=== PATIENT | female | born 1980 | race Caucasian/White ===

== ENCOUNTER 2018-06-03 18:23 | Emergency (ER) | payer OTHER ==
[2018-06-03 19:31] VITALS: BMI 28.7
[2018-06-03 19:35] VITALS: BP 109/73; PULSE 71; RESP 18; TEMP 98.3; O2SAT 100
--- NOTE | 2018-06-03 20:18 | ED PDOC ---
Arrival/HPI - General Chief Complaint: Abnormal Skin Integrity Time Seen by Provider: 06/03/18 19:36 - History of Present Illness Narrative History of Present Illness (Text): 06/03/18 20:15 38 yo female, hx of lupus presents for rash x 3 days. rash is pruitic. started on arms and now diffuse across chest back legs. no new lotions creams detergents. Past Medical History - Infectious Disease Hx of Infectious Diseases: None - Endocrine/Metabolic Hx Systemic Lupus Erythematosus: Yes - Psychiatric Hx Substance Use: No - Surgical History Hx Section: Yes (x1) - Anesthesia Hx Anesthesia: Yes Hx Anesthesia Reactions: No Hx Malignant Hyperthermia: No Family/Social History Family/Social History: Unknown Family HX Smoking Status: Never Smoked Hx Alcohol Use: No Hx Substance Use: No Allergies/Home Meds Allergies/Adverse Reactions: Allergies No Known Allergies Allergy (Verified 06/03/18 19:31) Review of Systems - Review of Systems Constitutional: Normal Eyes: Normal ENT: Normal Respiratory: Normal Cardiovascular: Normal Gastrointestinal: Normal Genitourinary Female: Normal Musculoskeletal: Normal Skin: Rash Neurological: Normal Endocrine: Normal Hemo/Lymphatic: Normal Psychiatric: Normal Physical Exam Vital Signs Temp Pulse Resp BP Pulse Ox 06/03/18 19:35 98.3 F 71 18 109/73 100 Temperature: Afebrile Blood Pressure: Normal Pulse: Regular Respiratory Rate: Normal Appearance: Positive for: Well-Appearing, Non-Toxic, Comfortable Pain Distress: None Mental Status: Positive for: Alert and Oriented X 3 - Systems Exam Head: Present: Atraumatic, Normocephalic Pupils: Present: PERRL Extroacular Muscles: Present: EOMI Conjunctiva: Present: Normal Mouth: Present: Moist Mucous Membranes Neck: Present: Normal Range of Motion Respiratory/Chest: Present: Clear to Auscultation, Good Air Exchange. No: Respiratory Distress, Accessory Muscle Use Cardiovascular: Present: Regular Rate and Rhythm, Normal S1, S2. No: Murmurs Abdomen: No: Tenderness, Distention, Peritoneal Signs Back: Present: Normal Inspection Upper Extremity: Present: Normal Inspection. No: Cyanosis, Edema Lower Extremity: Present: Normal Inspection. No: Edema Neurological: Present: GCS=15, CN II-XII Intact, Speech Normal Skin: Present: Warm, Dry, Rashes, Normal Color ((+)rash across arms back chest and legs, macupupular, blanching) Psychiatric: Present: Alert, Oriented x 3, Normal Insight, Normal Concentration Medical Decision Making ED Course and Treatment: 06/03/18 20:16 suspect allergic rxn vs non specific rash x 3 days. pt well apperaing in nad. supportive tx outpt fu. - Medication Orders Current Medication Orders: Discontinued Medications Diphenhydramine HCl (Benadryl) 50 mg PO STAT STA Stop: 06/03/18 20:01 Famotidine (Pepcid) 20 mg PO STAT STA Stop: 06/03/18 20:01 Prednisone (Prednisone Tab) 50 mg PO STAT STA Stop: 06/03/18 20:01 Disposition/Present on Arrival - Present on Arrival Any Indicators Present on Arrival: No History of DVT/PE: No History of Uncontrolled Diabetes: No Urinary Catheter: No History of Decub. Ulcer: No History Surgical Site Infection Following: None - Disposition Have Diagnosis and Disposition been Completed?: Yes Diagnosis: Rash Disposition: HOME/ ROUTINE Disposition Time: 20:17 Condition: STABLE Discharge Instructions (ExitCare): Skin Rash (DC) Additional Instructions: please follow up with your doctor/clinc. return to er with worsening symptoms or concerns. please see specialsit. Prescriptions: DiphenhydrAMINE [Benadryl] 25 mg PO Q4 PRN #20 cap PRN Reason: Itching / Pruritus Famotidine [Pepcid] 20 mg PO DAILY #7 tab RX: Prednisone 50 mg PO DAILY #5 tablet Referrals: Jonathan Brito MD [Staff Provider] - Follow up with primary [facility] [Outside] - [place] up [place] [facility] [place] - Follow up with primary Forms: [employer] (Czech)
== END 2018-06-03 20:50 | disposition home or self-care (01) ==
LOC: ED 18:23 → MERGE 18:23 → ED 20:50
DX: R21 Rash and other nonspecific skin eruption (principal)